=== PATIENT | female | born 1985 | race Caucasian/White ===

== ENCOUNTER 2020-04-27 11:48 | Inpatient (IN) | payer MEDICAID ==
[~2020-04-27] VITALS: Ht 165.1 cm; Wt 73.9 kg
[2020-04-27] MEDS ORDERED: LR 1,000 ML IV SCH (12:08)
[2020-04-27] MEDS ORDERED: OXYTOCIN/0.9 % SODIUM CHLORIDE 1,000 ML IV SCH (12:08)
[2020-04-27] MEDS ORDERED: TERBUTALINE SULFATE 1 MG/ML VIAL SUBCUT ONE (12:15)
[2020-04-27 12:31] LABS: BASOPHILS % (AUTO) 0.5 % (0.0-2.0); EOSINOPHILS % (AUTO) 0.4 % (0.0-4.0); HEMATOCRIT 39.9 % (36-48); HEMOGLOBIN 13.2 g/dL (12.0-16.0); LYMPHOCYTES # (AUTO) 1.3 K/uL (1.0-5.5); LYMPHOCYTES % (AUTO) 17.5 % (20.5-51.5); MEAN CORPUSCULAR HEMOGLOBIN 29 pg (27-31); MEAN CORPUSCULAR HGB CONC 33 % (32-36); MEAN CORPUSCULAR VOLUME 89 fL (79.0-98.0); MONOCYTES # (AUTO) 0.4 K/uL (0.0-1.0); MONOCYTES % (AUTO) 5.3 % (1.7-9.3); NEUTROPHILS # (AUTO) 5.5 K/uL (1.8-7.7); NEUTROPHILS % (AUTO) 76.3 % (40.0-70.0); PLATELET COUNT (AUTO) 146 K/uL (130-430); RED BLOOD CELL COUNT(AUTO) 4.49 MIL/uL (4.2-6.2); RED CELL DISTRIBUTION WIDTH 14.3 % (9.0-15.0); WHITE BLOOD COUNT (AUTO) 7.2 K/uL (4.8-10.8)
[2020-04-27 14:00] VITALS: BP_SYST 120
[2020-04-27] MEDS ORDERED: fentaNYL CITRATE/PF 100 MCG/2 ML AMP ONE (21:54)
[2020-04-27] MEDS ORDERED: ROPIVACAINE HCL/PF 0.2% 200 ML ONE (21:54)
[2020-04-28] MEDS ORDERED: OXYTOCIN/0.9 % SODIUM CHLORIDE 1,000 ML IV ONE (01:09)
[2020-04-28] MEDS ORDERED: ANUSOL 1 EA SUPP.RECT (PREPARATION H) RC PRN (01:15)
[2020-04-28] MEDS ORDERED: LANOLIN 7 GM OINT. TP PRN (01:15)
[2020-04-28] MEDS ORDERED: OXYCODONE/ACETAMINOPHEN 5-325 TABLET PO PRN ×2 (01:15)
[2020-04-28] MEDS ORDERED: DOCUSATE SODIUM 100 MG CAPSULE PO PRN (01:15)
[2020-04-28] MEDS ORDERED: WITCH HAZEL LEAF 1 MED.PAD MED.PAD TP PRN (01:15)
[2020-04-28] MEDS ORDERED: METHYLERGONOVINE MALEATE 0.2 MG TABLET PO PRN (01:15)
[2020-04-28] MEDS ORDERED: HYDROCORTISONE 0.5%, 28.35 GM TOPICAL CREAM TP PRN (01:15)
[2020-04-28] MEDS ORDERED: DERMOPLAST SPRAY TP PRN (01:15)
[2020-04-28] MEDS: IBUPROFEN 800 MG TABLET PO PRN ×3 (05:20→17:54)
[2020-04-28] MEDS ORDERED: BUPIVACAINE /PF 0.5% 30 ML VIAL EP ONE (12:24)
[2020-04-28] MEDS ORDERED: TEMAZEPAM 15 MG CAPSULE PO PRN (21:00)
[2020-04-29] MEDS: IBUPROFEN 800 MG TABLET PO PRN ×3 (05:40→11:49)
[2020-04-29 06:49] LABS: HEMATOCRIT 38.6 % (36-48)
[2020-04-29 19:10] LABS: FTA-Ab (T PALLIDUM) Non Reactive (Non Reactive)
== END 2020-04-29 12:25 | disposition home or self-care (01) | DRG 560 ==
LOC: OBSVTOIN 11:48 → SPU 11:48
PROVIDERS: ADMIT Obstetrics & Gynecology; ATTEND Obstetrics & Gynecology
PROC: 10E0XZZ Delivery of Products of Conception, External Approach (ICD-10-PCS; principal; 2020-04-28)
DX: O80 Encounter for full-term uncomplicated delivery (principal); Z3A.39 39 weeks gestation of pregnancy; Z37.0 Single live birth
CPT/HCPCS: 36415; 81002-TC; 85018-TC; 85025; 86592; 86780; 86886; 86900; 86901; 94760; J2590; J3010; J3490; J7120